=== PATIENT | female | born 1975 | race Caucasian/White ===

== ENCOUNTER 2020-10-20 07:05 | Inpatient (IN) | payer MEDICAID ==
[~2020-10-20] VITALS: Ht 152.4 cm; Wt 103.1 kg
[2020-10-20] MEDS ORDERED: LABETALOL 5MG/ML SYR 20 MG/4 ML SYRINGE IV ONE ×2 (07:30)
[2020-10-20] MEDS ORDERED: LEVETIRACETAM 500MG PREMIX 100 ML IV ONE (07:30)
[2020-10-20] MEDS ORDERED: NICARDIPINE 40MG/200ML PREMIX 200 ML IV STA (07:30)
[2020-10-20 07:40] LABS: HEMATOCRIT. 40.8 % (36.0-48.0); HEMOGLOBIN. 13.9 g/dL (12.0-16.0); MEAN CORPUSCULAR HEMOGLOBIN 30.3 pg (28.0-32.0); MEAN CORPUSCULAR VOLUME 88.7 fL (81.0-99.0); MEAN PLATELET VOLUME 8.9 fl (7.4-10.4); PLATELET 215 x1000/uL (130-400); RED CELL DISTRIBUTION WIDTH 13.4 % (11.6-14.6)
[2020-10-20 07:41] LABS: CHLORIDE 104 mEq/L (98-107)
[2020-10-20] MEDS ORDERED: IOHEXOL-350 100 ML BOTTLE ONE (07:45)
[2020-10-20 07:46] LABS: ETHANOL BLOOD < 10 mg/dL
[2020-10-20 07:49] LABS: LDL CHOLESTEROL 90 mg/dL (5-100)
[2020-10-20 07:51] LABS: CREATINE KINASE 251 IU/L (26-192)
[2020-10-20] MEDS ORDERED: MANNITOL 12.5G (25%) VIAL 50ML IV ONE (08:00)
[2020-10-20] MEDS ORDERED: DEXAMETHASONE 10 MG/ML VIAL IV ONE (08:00)
[2020-10-20 08:01] LABS: INR 1.1
[2020-10-20 08:08] LABS: PLATELET ESTIMATE NORMAL
[2020-10-20 08:32] LABS: HCG SCREEN NEGATIVE
[2020-10-20] MEDS ORDERED: ONDANSETRON HCL 4MG/2ML INJ IV PRN (09:15)
[2020-10-20] MEDS ORDERED: NICARDIPINE 50 MG in SODIUM CHLORIDE 0.9% 230 ML IV PRN (09:15)
[2020-10-20 10:55] LABS: CLARITY URINE CLOUDY (CLEAR); KETONES URINE NEGATIVE (NEGATIVE); LEUKOCYTE ESTERASE URINE 3+ (NEGATIVE); NITRITE URINE NEGATIVE (NEGATIVE); OCCULT BLOOD URINE NEGATIVE (NEGATIVE); PH URINE 6.5 (4.5-8.0); PROTEIN URINE NEGATIVE (NEGATIVE); SPECIFIC GRAVITY URINE 1.028 (1.005-1.030); UROBILINOGEN URINE 0.2 E.U./dL (0.2-1.0)
[2020-10-20 10:57] LABS: COLOR URINE PALE YELLOW (YELLOW)
[2020-10-20] MEDS: PANTOPRAZOLE SODIUM 40 MG/VIAL IV SCH (11:14)
[2020-10-20] MEDS: DEXT 5%/LACTATED RINGERS 1,000 ML IV SCH (11:15)
[2020-10-20 12:23] LABS: *AMPHETAMINES SCREEN URINE NEGATIVE (NEGATIVE); *BARBITURATES SCREEN URINE NEGATIVE (NEGATIVE); *COCAINE SCREEN URINE NEGATIVE (NEGATIVE); OPIATES URINE SCREEN NEGATIVE (NEGATIVE)
[2020-10-20 12:24] LABS: CANNABINOID URINE SCREEN NEGATIVE (NEGATIVE); PHENCYCLIDINE URINE SCREEN NEGATIVE (NEGATIVE)
[2020-10-20 12:26] LABS: *BENZODIAZEPINES SCREEN URINE NEGATIVE (NEGATIVE)
[2020-10-20 12:28] LABS: METHADONE URINE SCREEN NEGATIVE (NEGATIVE)
[2020-10-20] MEDS: NICARDIPINE 50 MG in SODIUM CHLORIDE 0.9% 230 ML IV PRN ×2 (17:52→23:25)
[2020-10-21] MEDS: DEXT 5%/LACTATED RINGERS 1,000 ML IV SCH (01:55)
[2020-10-21 05:29] LABS: BASOPHILS % 0.1 % (0.0-2.0); HEMATOCRIT. 39.5 % (36.0-48.0); HEMOGLOBIN. 13.6 g/dL (12.0-16.0); LYMPHOCYTES % 17.4 % (20.0-50.0); MEAN CORPUSCULAR HEMOGLOBIN 30.5 pg (28.0-32.0); MEAN PLATELET VOLUME 8.5 fl (7.4-10.4); MONOCYTES % 6.8 % (2.0-8.0); NEUTROPHILS % 75.7 % (40.0-76.0); PLATELET 215 x1000/uL (130-400); RED BLOOD CELL COUNT 4.44 mill/uL (4.2-5.4); RED CELL DISTRIBUTION WIDTH 13.1 % (11.6-14.6)
[2020-10-21 05:34] LABS: CHLORIDE 108 mEq/L (98-107)
[2020-10-21] MEDS: PANTOPRAZOLE SODIUM 40 MG/VIAL IV SCH (09:00)
[2020-10-21] MEDS: NICARDIPINE 50 MG in SODIUM CHLORIDE 0.9% 230 ML IV PRN ×2 (12:04→16:04)
[2020-10-21] MEDS ORDERED: PIPERACILLIN/TAZOBACTAM 3.375 G in DEXT 5% WATER 100 ML IV SCH (14:00)
[2020-10-22] VITALS (38 sets, daily range): BP systolic 112–148; BP diastolic 63–95
[2020-10-22] MEDS: PANTOPRAZOLE SODIUM 40 MG/VIAL IV SCH (09:24)
[2020-10-22] MEDS: NICARDIPINE 50 MG in SODIUM CHLORIDE 0.9% 230 ML IV PRN ×2 (10:14→17:07)
[2020-10-22] MEDS: PIPERACILLIN/TAZOBACTAM 3.375 G in DEXT 5% WATER 100 ML IV SCH ×3 (10:14→22:02)
[2020-10-22] MEDS: DEXT 5%/LACTATED RINGERS 1,000 ML IV SCH (11:23)
[2020-10-22] MEDS: AMLODIPINE 10MG TABLET PO SCH (13:43)
[2020-10-22] MEDS: LEVETIRACETAM 500MG TABLET PO SCH (22:02)
[2020-10-23] VITALS (10 sets, daily range): BP systolic 121–146; BP diastolic 61–100
[2020-10-23] MEDS: NICARDIPINE 50 MG in SODIUM CHLORIDE 0.9% 230 ML IV PRN (04:25)
[2020-10-23] MEDS: DEXT 5%/LACTATED RINGERS 1,000 ML IV SCH (04:27)
[2020-10-23] MEDS: PIPERACILLIN/TAZOBACTAM 3.375 G in DEXT 5% WATER 100 ML IV SCH ×3 (04:27→15:51)
[2020-10-23] MEDS: LEVETIRACETAM 500MG TABLET PO SCH (08:08)
[2020-10-23] MEDS: PANTOPRAZOLE SODIUM 40 MG/VIAL IV SCH (08:08)
[2020-10-23] MEDS: AMLODIPINE 10MG TABLET PO SCH (08:09)
[2020-10-23] MEDS ORDERED: LOSARTAN POTASSIUM 50 MG TABLET PO SCH (09:00)
[2020-10-23] MEDS ORDERED: CLONIDINE 0.1MG TABLET PO PRN (10:15)
[2020-10-23] MEDS ORDERED: LOSA100T32 MT (14:19)
[2020-10-23] MEDS ORDERED: KEPP500 MT (14:19)
== END 2020-10-23 17:55 | disposition home or self-care (01) | DRG 44 ==
LOC: ER 07:15 → EDBEDREQ 07:36 → EDBEDREQTM 07:36 → EDBEDREQSVC 07:36 → EDBEDREQ 08:23 → MICUSO 10-21 00:04 → 5EST 10-22 07:38 → 3WST 10-22 17:42
PROVIDERS: ADMIT Internal Medicine; ATTEND Internal Medicine
DX: I61.8 Other nontraumatic intracerebral hemorrhage (principal); I16.1 Hypertensive emergency; G81.91 Hemiplegia, unspecified affecting right dominant side; I10 Essential (primary) hypertension; E66.01 Morbid (severe) obesity due to excess calories; J98.11 Atelectasis; Z68.41 Body mass index [BMI] 40.0-44.9, adult; Z71.3 Dietary counseling and surveillance; R47.1 Dysarthria and anarthria; R53.81 Other malaise; R74.8 Abnormal levels of other serum enzymes; N39.0 Urinary tract infection, site not specified
CPT/HCPCS: 36415; 70496; 70498; 71045; 80048; 80053; 80305; 80320; 81003; 82550; 82962; 83036; 83721; 83880; 84484; 84703; 85025; 93005; 96365; 97110; 97116; 97162; 97166; 99291; C9113; J1100; J1953; J2150; J2543; J3490; J7050; J7060; Q9967; G0480

== ENCOUNTER 2022-02-13 11:46 | Emergency (ER) | payer MEDICAID ==
[~2022-02-13] VITALS: Ht 162.6 cm; Wt 82.0 kg
[~2022-02-13 11:46] MED LIST: KEPP500 MT; LOSA100T32 MT
[2022-02-13 12:44] LABS: HEMATOCRIT. 32.6 % (36.0-48.0); HEMOGLOBIN. 11.7 g/dL (12.0-16.0); MEAN CORPUSCULAR HEMOGLOBIN 32.5 pg (28.0-32.0); MEAN CORPUSCULAR VOLUME 90.9 fL (81.0-99.0); MEAN PLATELET VOLUME 9.9 fl (7.4-10.4); PLATELET 259 x1000/uL (130-400); RED BLOOD CELL COUNT 3.59 mill/uL (4.2-5.4); RED CELL DISTRIBUTION WIDTH 14.7 % (11.6-14.6)
[2022-02-13 12:51] LABS: CHLORIDE 101 mEq/L (98-107)
[2022-02-13 12:55] LABS: ETHANOL BLOOD < 10 mg/dL
[2022-02-13 13:02] LABS: B-HCG QUANTITATIVE < 1 mIU/mL (<3)
[2022-02-13 13:17] LABS: PLATELET ESTIMATE NORMAL
[2022-02-13 13:24] LABS: CLARITY URINE CLEAR (CLEAR); COLOR URINE YELLOW (YELLOW); KETONES URINE NEGATIVE (NEGATIVE); LEUKOCYTE ESTERASE URINE NEGATIVE (NEGATIVE); NITRITE URINE NEGATIVE (NEGATIVE); OCCULT BLOOD URINE NEGATIVE (NEGATIVE); PH URINE 6.5 (4.5-8.0); PROTEIN URINE TRACE (NEGATIVE); SPECIFIC GRAVITY URINE 1.004 (1.005-1.030); UROBILINOGEN URINE 0.2 E.U./dL (0.2-1.0)
[2022-02-13] MEDS ORDERED: AMLODIPINE 5MG TABLET PO ONE (18:30)
[2022-02-13] MEDS ORDERED: IOHEXOL-350 100 ML BOTTLE ONE (18:41)
[2022-02-13] MEDS ORDERED: SODIUM CHLORIDE 0.9% 1,000 ML IV ONE (19:15)
[2022-02-13] MEDS ORDERED: AMLO5TAB88 MT (21:15)
[2022-02-13 21:30] VITALS: BP 160/98
== END 2022-02-13 21:52 | disposition home or self-care (01) ==
LOC: ER 11:55
DX: R00.0 Tachycardia, unspecified (principal); R06.02 Shortness of breath; Z20.822 Contact with and (suspected) exposure to COVID-19; R53.83 Other fatigue; I10 Essential (primary) hypertension; Z86.73 Personal history of transient ischemic attack (TIA), and cerebral infarction without residual deficits
CPT/HCPCS: 36415; 71045; 71275; 80053; 80320; 81003; 83605; 83690; 83880; 84702; 85025; 85379; 87040; 87086; 87426; 93005; 99285; J7030; Q9967; G0480